=== PATIENT | male | born 1970 ===

== ENCOUNTER 2017-06-05 15:39 | Emergency (ER) | payer OTHER ==
[2017-06-05 17:24] LABS: RBC URINE 20 /hpf (0-3); URINE BACTERIA OCC (<OCC); URINE BILIRUBIN NEGATIVE (NEGATIVE); URINE COLOR Yellow (YELLOW); URINE GLUCOSE (UA) NORMAL (Normal); URINE KETONE NEGATIVE (NEGATIVE); URINE PROTEIN NEGATIVE (NEGATIVE); URINE UROBILINOGEN NORMAL mg/dL (0.2-1.0); WBC URINE 15 /hpf (0-5)
[2017-06-05 17:29] LABS: URINE BLOOD 3+ (NEGATIVE); URINE LEUKOCYTE ESTERASE 2+ Leu/uL (Negative)
[2017-06-05] MEDS ORDERED: Sodium Chloride 0.9% 1,000 ML IV ONE (18:17)
[2017-06-05 18:32] LABS: BASO # 0.1 K/uL (0.0-0.2); BASO % 0.8 % (0.0-2.0); EOS # 0.2 K/uL (0.0-0.7); EOS % 1.9 % (0.0-4.0); HEMATOCRIT 45.7 % (35.0-51.0); LYMPH # 2.3 K/uL (1.0-4.3); LYMPH % 25.8 % (20.0-40.0); MEAN CELL VOLUME 92.6 fL (80.0-94.0); MEAN CORPUSCULAR HEMOGLOBIN 31.1 pg (27.0-31.0); MEAN CORPUSCULAR HGB CONC 33.5 g/dL (33.0-37.0); MEAN PLATELET VOLUME 8.9 fL (7.2-11.7); MONO # 0.3 K/uL (0.0-0.8); MONO % 3.6 % (0.0-10.0); RED CELL DISTRIBUTION WIDTH 13.7 % (11.5-14.5); WHITE BLOOD COUNT 8.7 K/uL (4.8-10.8)
[2017-06-05 19:11] VITALS: RESP 18
[2017-06-05 19:11] LABS: ALB/GLOB RATIO 1.4 (1.0-2.1); ALKALINE PHOSPHATASE 74 U/L (38-126); ALT/SGPT 29 U/L (21-72); AST/SGOT 23 U/L (17-59); BILIRUBIN,TOTAL 0.7 mg/dL (0.2-1.3); BLOOD UREA NITROGEN 11 mg/dL (9-20); CARBON DIOXIDE 25 mmol/L (22-30); CHLORIDE 101 mmol/L (98-107); GFR AFRICAN-AMERICAN > 60; GLUCOSE,RANDOM 94 mg/dL (75-110); POTASSIUM 3.7 mmol/L (3.6-5.2); SODIUM 134 mmol/L (132-148); TOTAL PROTEIN 6.5 g/dL (6.3-8.3)
[2017-06-05 19:19] VITALS: O2SAT 96
--- NOTE | 2017-06-05 19:19 | C.PDOC ---
History Of Present Illness 47 year old male presents to the ED c/o R>L flank pain described as moderate in severity that has been occurring for the past 3 days. Patient reports this pain is consistent with prior renal colic episodes and its worse when drinking ETOH. Otherwise, Patient denies any fever, nausea, vomit, diarrhea, CP, SOB, back pain , weakness, numbness. Time Seen by Provider: 06/05/17 18:06 Chief Complaint (Nursing): Male Genitourinary History Per: Patient History/Exam Limitations: no limitations Onset/Duration Of Symptoms: Days Current Symptoms Are (Timing): Still Present Quality Of Discomfort: "Pain" Associated Symptoms: denies: Fever, Nausea, Vomiting, Back Pain, Urinary Symptoms Recent travel outside of the [place]: No Additional History Per: Patient Past Medical History Reviewed: Historical Data, Nursing Documentation, Vital Signs Vital Signs: Last Vital Signs Temp 97.9 F 06/05/17 21:00 Pulse 78 06/05/17 21:00 Resp 18 06/05/17 21:00 BP 146/89 06/05/17 21:00 Pulse Ox 96 06/05/17 21:12 - Medical History PMH: Kidney Stones, Chronic Kidney Disease Surgical History: No Surg Hx Family History: States: Unknown Family Hx - Social History Hx Tobacco Use: Yes Hx Alcohol Use: Yes Hx Substance Use: Yes - Immunization History Hx Tetanus Toxoid Vaccination: No Hx Influenza Vaccination: No Hx Pneumococcal Vaccination: No Review Of Systems Constitutional: Negative for: Fever, Chills Cardiovascular: Negative for: Chest Pain, Palpitations Respiratory: Negative for: Cough, Shortness of Breath Gastrointestinal: Positive for: Abdominal Pain (R> L flank pain). Negative for : Nausea, Vomiting Genitourinary: Negative for: Dysuria, Incontinence Musculoskeletal: Negative for: Back Pain Skin: Negative for: Rash Neurological: Negative for: Weakness, Numbness Physical Exam - Physical Exam Appears: Non-toxic, No Acute Distress, Other (Obese) Skin: Normal Color, Warm, Dry, No Rash Head: Atraumatic, Normacephalic Eye(s): bilateral: PERRL Nose: No Discharge, No Deformity Oral Mucosa: Moist, No Drooling Throat: Normal, No Erythema, No Exudate Neck: Normal ROM, Supple Chest: Symmetrical Cardiovascular: Rhythm Regular, No Murmur Respiratory: Normal Breath Sounds, No Rales, No Rhonchi, No Wheezing Gastrointestinal/Abdominal: Soft, Tenderness (LLQ ) Back: No CVA Tenderness Extremity: Normal ROM, No Deformity, No Swelling Neurological/Psych: Oriented x3, Normal Speech, Normal Cognition ED Course And Treatment - Laboratory Results Result Diagrams: 06/05/17 18:29 06/05/17 18:29 Lab Interpretation: Abnormal (UA 20 WBC's) O2 Sat by Pulse Oximetry: 96 (On RA) Pulse Ox Interpretation: Normal - CT Scan/US CT abdomen/pelvis Other Rad Studies (CT/US): Interpreted By Me, Read By Radiologist, Radiology Report Reviewed CT/US Interpretation: IMPRESSION: Persistent stone within the left renal pelvis without hydronephrosis. Unremarkable evaluation of the right kidney and ureter. Fatty infiltration of an enlarged liver. Normal appendix. Progress Note: IVF, toradol Reevaluation Time: 21:00 Reassessment Condition: Improved - Physician Consult Information Outcome Of Conversation: 2100: d/w Dr. Magdalena Baptiste- who sent pt to ED today- ok to start Cipro 500 BID and f/u in office tomorrow. Medical Decision Making Medical Decision Making: NO new renal colic stones No epididimytis ? suspicion of GC/Chlamydia- labs sent consider prostatitis- start Cipro and opt f/u w Magdalena Baptiste, Urologist. Disposition Doctor Will See Patient In The: Office Counseled Patient/Family Regarding: Studies Performed, Diagnosis - Disposition Referrals: [facility] at [facility] [Outside] Andrew Baptiste MD [Staff Provider] - Disposition: HOME/ ROUTINE Disposition Time: 21:01 Condition: GOOD Additional Instructions: Constipation: trial a laxative, drink a bottle of mag citrate- and re-evaluate your abdominal discomfort after using the bathroom 2-3 times diet 7 fresh fruits and vegetables a day drink more water 60 minutes cardio 5 days/week Occasional laxatives as needed. Suspected Prostatitis: Cipro 500 mg twice a day, usually for 1 month 2 weeks Rx given Follow-up with Dr. Baptiste tomorrow Call to make appt Fatty Liver High risk for liver damage and diabetes stress weight loss and diet Follow-up with your PMD or our [facility] as needed. Prescriptions: Ciprofloxacin [Cipro] 1 tab PO BID #14 tab Instructions: Constipation (ED), Prostatitis (ED) Forms: [employer] (Nepalese) - Clinical Impression Clinical Impression: Dysuria, Colicky RUQ abdominal pain - Scribe Statement The provider has reviewed the documentation as recorded by the Scribe Jose Gates All medical record entries made by the Scribe were at my direction and personally dictated by me. I have reviewed the chart and agree that the record accurately reflects my personal performance of the history, physical exam, medical decision making, and the department course for this patient. I have also personally directed, reviewed, and agree with the discharge instructions and disposition.
--- NOTE | 2017-06-05 20:40 | CT ---
EXAM: CT Abdomen and Pelvis Without Intravenous Contrast CLINICAL HISTORY: 47 years old, male; Pain; Abdominal pain; Flank; Right lower quadrant (rlq); Additional info: R flank, h/o l renal colic TECHNIQUE: Axial computed tomography images of the abdomen and pelvis without intravenous contrast. All CT scans at this facility use one or more dose reduction techniques, viz.: automated exposure control; ma/kV adjustment per patient size (including targeted exams where dose is matched to indication; i.e. head); or iterative reconstruction technique. Coronal and sagittal reformatted images were created and reviewed. COMPARISON: No relevant prior images available for comparison. Reference is made to a report from 09/17/2014. FINDINGS: Lower thorax: Left basilar atelectasis. The remainder of the lungs are clear. ABDOMEN: Liver: The liver is enlarged and demonstrates diffuse fatty infiltration. Gallbladder and bile ducts: No acute finding. No calcified stones. No intra-extrahepatic biliary ductal dilation. Pancreas: Limited evaluation secondary to the lack of intravenous contrast. Spleen: No acute findings. Adrenals: No acute findings. Kidneys and ureters: No obstructing stones. 10 mm stone within the left renal pelvis, without hydronephrosis. PELVIS: Bladder: No acute findings. Reproductive: Bulky calcification within the prostate gland, more than normally expected for a patient of this age. Appendix: The air filled appendix is of normal caliber (series 3, image 142). ABDOMEN and PELVIS: Stomach and bowel: No acute findings. Peritoneum: No acute findings. Lymph nodes: Limited evaluation without intravenous contrast. Vasculature: No aortic aneurysm. Bones: No acute fracture. IMPRESSION: Persistent stone within the left renal pelvis without hydronephrosis. Unremarkable evaluation of the right kidney and ureter. Fatty infiltration of an enlarged liver. Normal appendix.
[2017-06-05 21:45] VITALS: BP 146/89; PULSE 78; TEMP 97.9
== END 2017-06-05 21:45 | disposition home or self-care (01) ==
LOC: C.ER 15:39
DX: R30.0 Dysuria (principal); R10.11 Right upper quadrant pain
CPT/HCPCS: 74176; 80053; 81001; 83690; 85025; 87491; 87591; 96360; 99285; J7040

== ENCOUNTER 2017-10-18 15:28 | Emergency (ER) | payer OTHER ==
[2017-10-18] MEDS ORDERED: Sodium Chloride 0.9% 1,000 ML IV ONE (15:50)
--- NOTE | 2017-10-18 15:52 | C.PDOC ---
History Of Present Illness 47-year-old male, presents to the emergency department with complaints of sudden onset left flank pain. Patient has a hx of lithotripsies and stones in the past. States he did not take any medication for symptoms. Denies nausea/ vomiting, symptoms, fever. Time Seen by Provider: 10/18/17 15:48 Chief Complaint (Nursing): Male Genitourinary History Per: Patient History/Exam Limitations: no limitations Current Symptoms Are (Timing): Still Present Severity: Mild Quality Of Discomfort: Aching Associated Symptoms: Urinary Symptoms Alleviating Factors: None Recent travel outside of the [place]: No Past Medical History Reviewed: Historical Data, Nursing Documentation, Vital Signs Vital Signs: Last Vital Signs Temp 98 F 10/18/17 17:23 Pulse 87 10/18/17 17:23 Resp 19 10/18/17 17:23 BP 136/86 10/18/17 17:23 Pulse Ox 98 10/18/17 17:23 - Medical History PMH: HTN, Kidney Stones, Chronic Kidney Disease Surgical History: No Surg Hx Family History: States: No Known Family Hx - Social History Hx Tobacco Use: Yes Hx Alcohol Use: Yes Hx Substance Use: Yes - Immunization History Hx Tetanus Toxoid Vaccination: No Hx Influenza Vaccination: No Hx Pneumococcal Vaccination: No Review Of Systems Constitutional: Negative for: Fever, Chills Cardiovascular: Negative for: Chest Pain Gastrointestinal: Positive for: Abdominal Pain. Negative for: Nausea, Vomiting Genitourinary: Positive for: Hematuria. Negative for: Dysuria, Frequency Musculoskeletal: Positive for: Back Pain Neurological: Negative for: Weakness, Numbness, Headache, Dizziness Physical Exam - Physical Exam Appears: Non-toxic, No Acute Distress Skin: Normal Color, Warm, Dry, No Rash Head: Normacephalic Eye(s): bilateral: PERRL Lips: Normal Appearing Neck: Normal ROM Chest: Symmetrical Cardiovascular: Rhythm Regular, No Murmur Respiratory: Normal Breath Sounds, No Accessory Muscle Use Gastrointestinal/Abdominal: Soft, Tenderness (left, upper/lower quadrants), No Guarding, No Rebound Back: CVA Tenderness (left) Extremity: Normal ROM, No Deformity, No Swelling Neurological/Psych: Oriented x3, Normal Speech Gait: Steady ED Course And Treatment - Laboratory Results Result Diagrams: 10/18/17 16:02 10/18/17 16:02 Lab Interpretation: No Acute Changes O2 Sat by Pulse Oximetry: 96 (RA) Pulse Ox Interpretation: Normal - CT Scan/US No standard instances Other Rad Studies (CT/US): Read By Radiologist, Radiology Report Reviewed CT/US Interpretation: FINDINGS: LOWER THORAX: There is linear atelectasis or scarring in the lingula. The lung bases are clear. There is trace pericardial effusion. LIVER: Again seen is an enlarged fatty liver. No gross lesion or ductal dilatation. GALLBLADDER AND BILE DUCTS: The gallbladder is contracted. PANCREAS: Normal in size. No gross lesion or ductal dilatation. SPLEEN: The spleen measures 13 cm. Borderline splenomegaly. ADRENALS: No discrete nodule. KIDNEYS AND URETERS: Both kidneys are normal in size. No hydronephrosis. There is a 8 mm nonobstructing stone in the lower pole of the left kidney. VASCULATURE: No aortic aneurysm. BOWEL: Unremarkable. No obstruction. No gross mural thickening. APPENDIX: Normal appendix. PERITONEUM : No free fluid. No free air. LYMPH NODES: No enlarged lymph nodes. BLADDER : Grossly normal in appearance. REPRODUCTIVE: The prostate gland is normal in size with central coarse calcifications. BONES: No acute fracture. Within normal limits for the patient's age. OTHER FINDINGS: None. IMPRESSION: 1. 8 mm nonobstructing stone in the lower pole of the left kidney. No right nephrolithiasis or hydronephrosis. 2. Fatty liver. Mild hepatosplenomegaly. Progress Note: Treated with IVF NSS and toradol. On re-evaluation abdomen soft in no distress Reassessment Condition: Improved Disposition Counseled Patient/Family Regarding: Studies Performed, Diagnosis, Need For Followup, Rx Given - Disposition Referrals: Andrew Baptiste MD [Staff Provider] - Disposition: HOME/ ROUTINE Disposition Time: 17:30 Condition: STABLE Prescriptions: Naproxen [Naprosyn] 1 tab PO BID PRN #25 tab PRN Reason: Pain Instructions: Renal Colic Forms: [facility] (Eritrean) - POA Present On Arrival: None - Clinical Impression Clinical Impression: Renal colic - Scribe Statement The provider has reviewed the documentation as recorded by the Scribe (Keanu Cunningham) All medical record entries made by the Scribe were at my direction and personally dictated by me. I have reviewed the chart and agree that the record accurately reflects my personal performance of the history, physical exam, medical decision making, and the department course for this patient. I have also personally directed, reviewed, and agree with the discharge instructions and disposition.
[2017-10-18 16:09] LABS: BASO # 0.1 K/uL (0.0-0.2); BASO % 0.9 % (0.0-2.0); EOS # 0.1 K/uL (0.0-0.7); EOS % 0.6 % (0.0-4.0); HEMOGLOBIN 15.4 g/dL (12.0-18.0); LYMPH # 4.6 K/uL (1.0-4.3); LYMPH % 51.3 % (20.0-40.0); MEAN CELL VOLUME 90.9 fL (80.0-94.0); MEAN CORPUSCULAR HEMOGLOBIN 31.3 pg (27.0-31.0); MEAN CORPUSCULAR HGB CONC 34.5 g/dL (33.0-37.0); MEAN PLATELET VOLUME 8.9 fL (7.2-11.7); MONO # 0.3 K/uL (0.0-0.8); MONO % 3.4 % (0.0-10.0); NEUT # 3.9 K/uL (1.8-7.0); NEUT % 43.8 % (50.0-75.0); NRBC % 0.1 % (0.0-2.0); RBC 4.93 Mil/uL (4.40-5.90); RED CELL DISTRIBUTION WIDTH 13.8 % (11.5-14.5)
[2017-10-18 16:22] LABS: ALBUMIN 3.5 g/dL (3.5-5.0); ALT/SGPT 59 U/L (21-72); AST/SGOT 55 U/L (17-59); BLOOD UREA NITROGEN 14 mg/dL (9-20); CALCIUM 8.1 mg/dl (8.6-10.4); GFR AFRICAN-AMERICAN > 60; GFR NON-AFRICAN AMERICAN > 60
[2017-10-18 16:49] LABS: SQUAMOUS EPITHIAL < 1 /hpf (0-5); URINE BACTERIA RARE (<OCC); URINE BILIRUBIN NEGATIVE (NEGATIVE); URINE BLOOD 3+ (NEGATIVE); URINE CLARITY Hazy (Clear); URINE COLOR Yellow (YELLOW); URINE GLUCOSE (UA) NORMAL (Normal); URINE LEUKOCYTE ESTERASE NEG Leu/uL (Negative); URINE PROTEIN 1+ mg/dL (NEGATIVE)
--- NOTE | 2017-10-18 16:50 | CT ---
PROCEDURE: CT Abdomen and Pelvis without intravenous contrast HISTORY: Pain COMPARISON: 06/05/2017. TECHNIQUE: CT scan of the abdomen and pelvis was performed without administration of intravenous contrast. Oral contrast was not administered. Coronal and sagittal reformatted images were obtained. Radiation dose: Total exam DLP = Total exam DLP = 1154.27 mGy-cm. This CT exam was performed using one or more of the following dose reduction techniques: Automated exposure control, adjustment of the mA and/or kV according to patient size, and/or use of iterative reconstruction technique. FINDINGS: LOWER THORAX: There is linear atelectasis or scarring in the lingula. The lung bases are clear. There is trace pericardial effusion. LIVER: Again seen is an enlarged fatty liver. No gross lesion or ductal dilatation. GALLBLADDER AND BILE DUCTS: The gallbladder is contracted. PANCREAS: Normal in size. No gross lesion or ductal dilatation. SPLEEN: The spleen measures 13 cm. Borderline splenomegaly. ADRENALS: No discrete nodule. KIDNEYS AND URETERS: Both kidneys are normal in size. No hydronephrosis. There is a 8 mm nonobstructing stone in the lower pole of the left kidney. VASCULATURE: No aortic aneurysm. BOWEL: Unremarkable. No obstruction. No gross mural thickening. APPENDIX: Normal appendix. PERITONEUM: No free fluid. No free air. LYMPH NODES: No enlarged lymph nodes. BLADDER: Grossly normal in appearance. REPRODUCTIVE: The prostate gland is normal in size with central coarse calcifications. BONES: No acute fracture. Within normal limits for the patient's age. OTHER FINDINGS: None. IMPRESSION: 1. 8 mm nonobstructing stone in the lower pole of the left kidney. No right nephrolithiasis or hydronephrosis. 2. Fatty liver. Mild hepatosplenomegaly.
[2017-10-18 17:24] VITALS: BP 136/86; PULSE 87; RESP 19; TEMP 98
[2017-10-18 18:39] VITALS: O2SAT 96
== END 2017-10-18 17:29 | disposition home or self-care (01) ==
LOC: C.ER 15:28
DX: N20.0 Calculus of kidney (principal)
CPT/HCPCS: 74176; 80053; 81001; 85025; 87086; 96361; 96374; 99285; J1885; J7040

== ENCOUNTER 2018-03-16 16:50 | Emergency (ER) | payer OTHER ==
[2018-03-16 16:58] VITALS: RESP 20
--- NOTE | 2018-03-16 17:17 | C.PDOC ---
History Of Present Illness 48 yr old male w/ hx of cocaine usage and kidney stones p/w chest pain Pt notes chest pain started 6 hours ago, L sided, without radiation, non pressure like, stabbing and gas like. He notes previous occurences in the past. Pt denies any orthopnea, pnd or leg swelling. He also notes he would like to see psychiatry today for feeling "down." No hx of blood clots, leg swelling, orthopnea, coughing blood, recent trauma or surgeries. No fever, chills or night sweats. No other complaints. Time Seen by Provider: 03/16/18 17:16 Chief Complaint (Nursing): Chest Pain Past Medical History Vital Signs: Last Vital Signs Temp 97.3 F L 03/16/18 19:23 Pulse 83 03/16/18 19:23 Resp 20 03/16/18 19:23 BP 137/94 H 03/16/18 19:23 Pulse Ox 96 03/16/18 19:31 - Medical History PMH: HTN (pt denies), Kidney Stones, Chronic Kidney Disease Family History: States: Unknown Family Hx - Social History Hx Tobacco Use: Yes Hx Alcohol Use: Yes Hx Substance Use: Yes - Immunization History Hx Tetanus Toxoid Vaccination: No Hx Influenza Vaccination: No Hx Pneumococcal Vaccination: No Review Of Systems Except As Marked, All Systems Reviewed And Found Negative. Constitutional: Negative for: Fever, Chills Eyes: Negative for: Pain ENT: Negative for: Ear Pain Cardiovascular: Positive for: Chest Pain. Negative for: Palpitations, Orthopnea , Paroxysmal Noc. Dyspnea, Edema, Light Headedness Respiratory: Negative for: Cough, Shortness of Breath, Hemoptysis Gastrointestinal: Negative for: Nausea, Vomiting, Abdominal Pain, Constipation, Melena, Hematochezia Genitourinary: Negative for: Dysuria Musculoskeletal: Negative for: Neck Pain Neurological: Negative for: Weakness Psych: Positive for: Depression Physical Exam - Physical Exam Appears: Well, No Acute Distress Skin: Normal Color, Warm, Dry Eye(s): bilateral: Normal Inspection, PERRL, EOMI Nose: Normal Throat: Normal Neck: Normal, No Midline Cervical Tenderness Back: Normal Inspection, No CVA Tenderness Extremity: Normal ROM Neurological/Psych: Oriented x3, Normal Speech Gait: Steady ED Course And Treatment - Laboratory Results Result Diagrams: 03/16/18 17:57 03/16/18 17:57 O2 Sat by Pulse Oximetry: 96 Medical Decision Making Medical Decision Makin yr old male p/w chest pain after recent cocaine usage. Also requesting psych. No RF for WA per Heart score. EKG 88, NSR, No stemi Heart score: Age: 1 EK Story: 0 trop: pend RF: 1 will call crisis and seek labs and imaging. low pretest wells, PERC out- non tachy. seen by crisis: clear per crisis xray unremarkable Heart score 0, clere for d/c home endorsed to pt to stop cocaine usage for risks of WA. he notes understanding Disposition - Disposition Referrals: Jose Eduardo Adam MD [Staff Provider] - Disposition: HOME/ ROUTINE Disposition Time: 19:20 Condition: GOOD Forms: [facility] (Czech) - Clinical Impression Clinical Impression: Chest pain, Substance abuse
[2018-03-16 18:06] LABS: BASO # 0.1 K/uL (0.0-0.2); BASO % 0.8 % (0.0-2.0); EOS # 0.1 K/uL (0.0-0.7); HEMOGLOBIN 15.2 g/dL (12.0-18.0); LYMPH # 2.7 K/uL (1.0-4.3); LYMPH % 31.6 % (20.0-40.0); MEAN CELL VOLUME 92.5 fL (80.0-94.0); MEAN CORPUSCULAR HEMOGLOBIN 31.7 pg (27.0-31.0); MEAN CORPUSCULAR HGB CONC 34.2 g/dL (33.0-37.0); MEAN PLATELET VOLUME 8.5 fL (7.2-11.7); MONO # 0.6 K/uL (0.0-0.8); MONO % 6.5 % (0.0-10.0); NEUT # 5.1 K/uL (1.8-7.0); NEUT % 60.1 % (50.0-75.0); NRBC % 0.1 % (0.0-2.0); RBC 4.8 Mil/uL (4.40-5.90); RED CELL DISTRIBUTION WIDTH 13.7 % (11.5-14.5); WHITE BLOOD COUNT 8.4 K/uL (4.8-10.8)
[2018-03-16 18:16] LABS: ALB/GLOB RATIO 1.3 (1.0-2.1); ALBUMIN 4.1 g/dL (3.5-5.0); ALT/SGPT 33 U/L (21-72); AST/SGOT 29 U/L (17-59); BLOOD UREA NITROGEN 12 mg/dL (9-20); CALCIUM 8.6 mg/dl (8.6-10.4); GFR NON-AFRICAN AMERICAN > 60
[2018-03-16 19:24] VITALS: BP 137/94; PULSE 83; TEMP 97.3
[2018-03-16 19:30] VITALS: O2SAT 96
--- NOTE | 2018-03-17 11:48 | RAD ---
Chest x-ray single frontal view History: Chest pain. Comparison: None available. Findings: Mild linear atelectasis at the left lung base. No gross focal infiltrate or effusion. Mild nodularity at the left costophrenic angle which may represent confluence of shadows with ribs and vessels. Tortuous aorta. Degenerative changes in the spine. Impression: No focal infiltrate or effusion.
== END 2018-03-16 19:36 | disposition home or self-care (01) ==
LOC: C.ER 16:50
DX: R07.9 Chest pain, unspecified (principal); F19.10 Other psychoactive substance abuse, uncomplicated; Z72.0 Tobacco use

== ENCOUNTER 2018-08-30 21:05 | Emergency (ER) | payer SELFPAY ==
[2018-08-30 21:15] VITALS: BP 152/109; PULSE 89; RESP 18; TEMP 98.4; O2SAT 95
--- NOTE | 2018-08-30 21:49 | C.PDOC ---
History Of Present Illness 48 y/o male presents to the ED complaining that after drinking alcohol tonight, he was eating some chicken and felt a pop in his mouth. He expresses concern about a bone stabbing in to his gums and is requesting evaluation. Otherwise he denies any difficulty swallowing, SOB, or inability to handle secretions. Time Seen by Provider: 08/30/18 21:41 Chief Complaint (Nursing): Dental Pain History Per: Patient History/Exam Limitations: no limitations Onset/Duration Of Symptoms: Mins Current Symptoms Are (Timing): Still Present Past Medical History Reviewed: Historical Data, Nursing Documentation, Vital Signs Vital Signs: Last Vital Signs Temp 98.4 F 08/30/18 21:12 Pulse 89 08/30/18 21:12 Resp 18 08/30/18 21:12 BP 152/109 H 08/30/18 21:12 Pulse Ox 95 08/30/18 21:12 - Medical History PMH: HTN (pt denies), Kidney Stones, Chronic Kidney Disease Family History: States: Unknown Family Hx - Social History Hx Tobacco Use: Yes Hx Alcohol Use: Yes Hx Substance Use: Yes - Immunization History Hx Tetanus Toxoid Vaccination: No Hx Influenza Vaccination: No Hx Pneumococcal Vaccination: No Review Of Systems Constitutional: Negative for: Fever ENT: Positive for: Mouth Pain. Negative for: Mouth Swelling, Throat Swelling, Other (difficulty swallowing) Respiratory: Negative for: Shortness of Breath Gastrointestinal: Negative for: Nausea, Vomiting Physical Exam - Physical Exam Appears: Well, Non-toxic, No Acute Distress Skin: Normal Color, Warm, No Rash Head: Atraumatic, Normacephalic Eye(s): bilateral: Normal Inspection (no scleral icterus), PERRL, EOMI Oral Mucosa: Moist Teeth: Normal Dentition Gingiva: Normal Appearing, No Swelling, No Tender, No Bleeding Throat: Normal (oropharynx is clear, no foreign body visualized), No Erythema, No Drooling Neck: Normal ROM, Supple Chest: Symmetrical Respiratory: No Accessory Muscle Use, Other (Normal inspiratory effort) Pulses: Left Radial: Normal, Right Radial: Normal Neurological/Psych: Oriented x3, Normal Cranial Nerves ED Course And Treatment O2 Sat by Pulse Oximetry: 95 (RA) Pulse Ox Interpretation: Normal Medical Decision Making Medical Decision Making: Impression: Dental pain, ETOH use Plan: Patient advised of normal physical exam, no apparent foreign body or gingival injury. Patient remains AAOx3 with clear speech and steady gait, stable for discharge home. Disposition Counseled Patient/Family Regarding: Diagnosis, Need For Followup - Disposition Referrals: Non [facility] Provider, [Primary Care Provider] - Disposition: HOME/ ROUTINE Disposition Time: 21:49 Condition: STABLE Instructions: Dental Pain (DC) Forms: [facility] (Chadian), General Discharge Instructions - Clinical Impression Clinical Impression: Toothache - PA / METAL TECHNICIAN / Resident Statement MD/DO has reviewed & agrees with the documentation as recorded. - Scribe Statement The provider has reviewed the documentation as recorded by the Scribchula Lin All medical record entries made by the Carolannibe were at my direction and personally dictated by me. I have reviewed the chart and agree that the record accurately reflects my personal performance of the history, physical exam, medical decision making, and the department course for this patient. I have also personally directed, reviewed, and agree with the discharge instructions and disposition.
== END 2018-08-30 22:05 | disposition home or self-care (01) ==
LOC: SUPCPDRO 21:05 → C.ER 21:05
DX: K08.89 Other specified disorders of teeth and supporting structures (principal)